=== PATIENT | female | born 1980 | race Caucasian/White ===

== ENCOUNTER 2016-12-27 20:23 | Outpatient (CLI) | payer MEDICAID, OTHER | END 2016-12-27 20:24 | disposition home or self-care (01) | DX: Z30.431 Encounter for routine checking of intrauterine contraceptive device (principal) ==

== ENCOUNTER 2017-07-14 23:51 | Outpatient (CLI) | payer OTHER | END 2017-07-14 23:52 | disposition critical access hospital (66) | LOC: EMS 23:51 | PROVIDERS: ATTEND Surgery | DX: S00.83XA Contusion of other part of head, initial encounter (principal); Y04.2XXA Assault by strike against or bumped into by another person, initial encounter | CPT/HCPCS: A0425; A0429 ==

== ENCOUNTER 2017-07-15 00:11 | Emergency (ER) | payer OTHER ==
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
[2017-07-15] MEDS ORDERED: HYDROcod/ACETAM 5/325 MG TABLET PO STA (01:05)
[2017-07-15] MEDS ORDERED: IBUPROFEN 600 MG TABLET PO STA (01:05)
[2017-07-15] MEDS ORDERED: HYDROcod/ACETAM 5/325 MG TABLET ONE (01:18)
[2017-07-15] MEDS ORDERED: IBUPROFEN 600 MG TABLET PO ONE (01:18)
[2017-07-15 01:53] LABS: BILIRUBIN,URINE NEGATIVE (NEGATIVE)
[2017-07-15 01:56] LABS: HCG UR QUAL NEGATIVE; UA w/ MICROSCOPIC CHARGE YES
[2017-07-15 02:12] LABS: UR CULTURE IF IND NOT INDICATED; WBC,URINE 0-3 /HPF (0-5)
--- NOTE | 2017-07-15 03:39 | XRAY Preliminary Report ---
Exam: XR Hand 3 View RT IMPRESSION: 1. Nondisplaced midshaft fifth metacarpal fracture of uncertain chronicity. Correlate for site of silvina n. 2. No forearm fracture seen. [facility] SITE ID: [id number]
--- NOTE | 2017-07-15 03:39 | XRAY Preliminary Report ---
Exam: XR Forearm RT IMPRESSION: 1. Nondisplaced midshaft fifth metacarpal fracture of uncertain chronicity. Correlate for site of silvina n. 2. No forearm fracture seen. [facility] SITE ID: [id number]
--- NOTE | 2017-07-15 03:40 | XRAY Preliminary Report ---
Exam: XR Chest 2 View PA/LAT IMPRESSION: Normal 2-view chest radiography. [facility] SITE ID: [id number]
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
--- NOTE | 2017-07-15 03:57 | CT Preliminary Report ---
Exam: CT Facial Bones W/O IMPRESSION: No evidence of maxillofacial fracture. [facility] SITE ID: [id number]
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
[2017-07-15] MEDS ORDERED: HYDROcod/ACET 5/325 Prepack 6 PO ONE ×2 (04:58→06:51)
[2017-07-15 06:58] VITALS: BP 141/68
== END 2017-07-15 08:54 | disposition home or self-care (01) ==
LOC: EDUNIT# → ED 00:11
DX: S00.83XA Contusion of other part of head, initial encounter (principal); S60.221A Contusion of right hand, initial encounter; S20.229A Contusion of unspecified back wall of thorax, initial encounter; T74.11XA Adult physical abuse, confirmed, initial encounter; Y08.89XA Assault by other specified means, initial encounter
CPT/HCPCS: 70486; 71020; 73090; 73130; 81001; 81025; 99283; A9270; 81003; 87086